=== PATIENT | female | born 1965 | race African-American/Black ===

== ENCOUNTER 2018-09-12 20:22 | Inpatient (IN) | payer OTHER, MEDICAID ==
[~2018-09-12] VITALS: Ht 172.7 cm; Wt 80.5 kg
[2018-09-12] MEDS ORDERED: ALBUTEROL (0.083%) 2.5MG/3ML NEB HHN STA (20:59)
[2018-09-12] MEDS ORDERED: METHYLPREDNISOLONE SOD SUCC 125 MG/2 ML VIAL IV STA (20:59)
[2018-09-12] MEDS ORDERED: IPRATROPIUM BROMIDE (0.02%) 0.5MG/2.5ML NEB HHN STA (20:59)
[2018-09-12 22:03] LABS: BASOPHILS % 0.6 % (0.0-2.0); EOSINOPHILS % 0.9 % (0.0-5.0); HEMATOCRIT. 36.1 % (36.0-48.0); HEMOGLOBIN. 12.1 g/dL (12.0-16.0); LYMPHOCYTES % 21.2 % (20.0-50.0); MEAN CORPUSCULAR HEMOGLOBIN 34.5 pg (28.0-32.0); MEAN CORPUSCULAR VOLUME 103.1 fL (81.0-99.0); MEAN PLATELET VOLUME 8.8 fl (7.4-10.4); NEUTROPHILS % 69.3 % (40.0-76.0); PLATELET 155 x1000/uL (130-400); RED CELL DISTRIBUTION WIDTH 13.1 % (11.6-14.6)
[2018-09-12 22:09] LABS: CHLORIDE 104 mEq/L (98-107)
[2018-09-12] MEDS ORDERED: DOXYCYCLINE 100MG in DEXTROSE 5% WATER 100ML IV NR (22:15)
[2018-09-12] MEDS ORDERED: DOXYCYCLINE HYCLATE 100 MG/VIAL IV ONE (22:15)
[2018-09-13] MEDS ORDERED: DOCUSATE SODIUM 100MG CAPSULE PO PRN (03:45)
[2018-09-13] MEDS ORDERED: GUAIFENESIN 200MG/10ML SUGAR FREE UDC PO PRN (03:45)
[2018-09-13] MEDS ORDERED: IPRATROPIUM/ALBUTEROL 0.5-3(2.5)MG/3ML NEB INH PRN (03:45)
[2018-09-13] MEDS ORDERED: ONDANSETRON HCL 4MG/2ML INJ IV PRN (03:45)
[2018-09-13] MEDS ORDERED: ACETAMINOPHEN 325MG TABLET PO PRN (03:45)
[2018-09-13] MEDS ORDERED: LEVOFLOXACIN 500MG PREMIX 100 ML IV NR (05:45)
[2018-09-13 06:40] LABS: CREATINE KINASE 73 IU/L (26-192)
[2018-09-13 06:41] LABS: CREATINE KINASE MB FRACTION 2.1 ng/mL (0.5-3.6)
[2018-09-13] MEDS: HYDROCODONE/ACETAMINOPHEN 5/325MG TABLET PO PRN (07:31)
[2018-09-13 08:06] LABS: BG BASE EXCESS 0.7 mmol/L (-2.0-2.0); BG DEOXYHEMOGLOBIN 1.7 % (0.0-5.0); BG HCO3 ACT 25.9 mmol/L (22.0-26.0); BG METHEMOGLOBIN 0.4 % (0.0-1.5); BG OXYGEN SATURATION 98.3 % (92.0-98.5); BG OXYHEMOGLOBIN 96.9 % (94.0-97.0); BG PCO2 43.8 mmHg (35.0-45.0); BG PO2 114.1 mmHg (75.0-100.0); BG SAMPLE SITE RIGHT RADIAL; BG TOTAL HEMOGLOBIN 12.6 g/dL (12.0-18.0); BG VENT MODE NASAL CANNULA
[2018-09-13 09:10] VITALS: BP 130/80
[2018-09-13 09:15] VITALS: BP 130/80
[2018-09-13] MEDS: METOPROLOL TARTRATE 25MG TABLET PO SCH ×2 (10:01→21:00)
[2018-09-13] MEDS: ASPIRIN 81MG EC TABLET PO SCH (10:01)
[2018-09-13] MEDS: FUROSEMIDE 40MG/4ML VIAL IV SCH (10:01)
[2018-09-13] MEDS: ENOXAPARIN 40MG/0.4ML SYR SUBCUT SCH (10:01)
[2018-09-13] MEDS ORDERED: SACU1TAB MT (10:38)
[2018-09-13] MEDS ORDERED: B50 MT (10:38)
[2018-09-13] MEDS ORDERED: PREG150C MT (10:38)
[2018-09-13] MEDS ORDERED: LORA10CA MT (10:38)
[2018-09-13] MEDS ORDERED: OXYC-105 MT (10:38)
[2018-09-13] MEDS ORDERED: FURO-151 MT (10:38)
[2018-09-13] MEDS ORDERED: MULT-1116 MT (10:39)
[2018-09-13] MEDS: HYDROMORPHONE HCL/PF 2MG/ML CPJ IV PRN (11:40)
[2018-09-13] MEDS ORDERED: LIDOCAINE HCL/PF 1% 2ML VIAL ONE (13:36)
[2018-09-13 17:51] LABS: CREATINE KINASE MB FRACTION 2.2 ng/mL (0.5-3.6)
[2018-09-13] MEDS ORDERED: LORAZEPAM 2MG/ML CPJ IV PRN (19:45)
[2018-09-13 20:00] VITALS: BP 128/86
[2018-09-13 22:00] VITALS: BP 128/86
[2018-09-14] VITALS: BP 117/74
[2018-09-14 04:00] VITALS: BP 117/78
[2018-09-14] MEDS ORDERED: LEVOFLOXACIN 500MG PREMIX 100 ML IV SCH (05:00)
[2018-09-14 06:59] LABS: BASOPHILS % 0.3 % (0.0-2.0); EOSINOPHILS % 0.2 % (0.0-5.0); HEMATOCRIT. 34.3 % (36.0-48.0); HEMOGLOBIN. 11.9 g/dL (12.0-16.0); LYMPHOCYTES % 18.2 % (20.0-50.0); MEAN CORPUSCULAR HEMOGLOBIN 35.6 pg (28.0-32.0); MEAN PLATELET VOLUME 8.9 fl (7.4-10.4); MONOCYTES % 6.2 % (2.0-8.0); NEUTROPHILS % 75.1 % (40.0-76.0); PLATELET 177 x1000/uL (130-400); RED BLOOD CELL COUNT 3.33 mill/uL (4.2-5.4); RED CELL DISTRIBUTION WIDTH 13.1 % (11.6-14.6)
[2018-09-14 08:00] VITALS: BP 116/80
[2018-09-14] MEDS: ASPIRIN 81MG EC TABLET PO SCH (08:44)
[2018-09-14] MEDS: FUROSEMIDE 40MG/4ML VIAL IV SCH (08:44)
[2018-09-14] MEDS: METOPROLOL TARTRATE 25MG TABLET PO SCH (08:44)
[2018-09-14] MEDS: ENOXAPARIN 40MG/0.4ML SYR SUBCUT SCH (08:45)
[2018-09-14] MEDS: HYDROCODONE/ACETAMINOPHEN 5/325MG TABLET PO PRN (08:51)
[2018-09-14] MEDS: HYDROMORPHONE HCL/PF 2MG/ML CPJ IV PRN (08:56)
[2018-09-14 10:11] LABS: CHLORIDE 104 mEq/L (98-107)
[2018-09-14 10:32] LABS: LDL CHOLESTEROL 73 mg/dL (5-100)
[2018-09-14 10:33] LABS: T4 FREE 1.41 ng/dL (0.76-1.46)
[2018-09-14 10:34] LABS: HDL CHOLESTEROL 63 mg/dL (40-59)
[2018-09-14 12:00] VITALS: BP 104/72
[2018-09-14 12:07] LABS: BG BASE EXCESS 5.9 mmol/L (-2.0-2.0); BG CARBOXYHEMOGLOBIN 0.6 % (0.5-1.5); BG DEOXYHEMOGLOBIN 2.6 % (0.0-5.0); BG FRACTION INSPIRED OXYGEN 28; BG HCO3 ACT 31.4 mmol/L (22.0-26.0); BG METHEMOGLOBIN 0.1 % (0.0-1.5); BG OXYGEN SATURATION 97.4 % (92.0-98.5); BG OXYHEMOGLOBIN 96.7 % (94.0-97.0); BG PCO2 49.4 mmHg (35.0-45.0); BG PH 7.421 (7.350-7.450); BG PO2 101.8 mmHg (75.0-100.0); BG SAMPLE SITE RIGHT RADIAL; BG TOTAL HEMOGLOBIN 12.6 g/dL (12.0-18.0); BG VENT MODE NASAL CANNULA
[2018-09-14 14:32] VITALS: BP 104/72
[2018-09-14 16:00] VITALS: BP 101/59
== END 2018-09-14 17:50 | disposition home or self-care (01) | DRG 304 ==
LOC: ER 20:22 → 8WST 22:01 → EDBEDREQ 22:03 → EDBEDREQTM 22:03 → ENRESERV 09-13 07:37
PROVIDERS: ADMIT Hospitalist; ATTEND Hospitalist
DX: I16.0 Hypertensive urgency (principal); I50.33 Acute on chronic diastolic (congestive) heart failure; J45.901 Unspecified asthma with (acute) exacerbation; J44.9 Chronic obstructive pulmonary disease, unspecified; I11.0 Hypertensive heart disease with heart failure
CPT/HCPCS: 36415; 36600; 71045; 80061; 82375; 82550; 82553; 82805; 83880; 84145; 84439; 84443; 84484; 93005; 93306; 94644; 96374; 99285; J1170; J1650; J1940; J1956; J2060; J2405; J2930; J3490; J7050; J7060; J7611

== ENCOUNTER 2019-04-29 18:08 | Inpatient (IN) | payer OTHER, MEDICAID ==
[~2019-04-29] VITALS: Ht 170.2 cm; Wt 89.8 kg
[~2019-04-29 18:08] MED LIST: B50 MT; FURO-151 MT; LORA10CA MT; MULT-1116 MT; OXYC-105 MT; PREG150C MT; SACU1TAB MT
[2019-04-29] MEDS ORDERED: IPRATROPIUM BROMIDE (0.02%) 0.5MG/2.5ML NEB HHN STA (18:26)
[2019-04-29] MEDS ORDERED: ONDANSETRON HCL 4MG/2ML INJ IV STA (18:26)
[2019-04-29] MEDS ORDERED: LORAZEPAM 2MG/ML CPJ IV ONE (18:30)
[2019-04-29] MEDS ORDERED: ASPIRIN 81MG TABLET PO ONE (18:30)
[2019-04-29 19:00] LABS: HEMATOCRIT. 40.8 % (36.0-48.0); HEMOGLOBIN. 14.2 g/dL (12.0-16.0); MEAN CORPUSCULAR HEMOGLOBIN 35.1 pg (28.0-32.0); MEAN PLATELET VOLUME 9.1 fl (7.4-10.4); PLATELET 131 x1000/uL (130-400); RED BLOOD CELL COUNT 4.03 mill/uL (4.2-5.4); RED CELL DISTRIBUTION WIDTH 14.8 % (11.6-14.6)
[2019-04-29 19:04] LABS: CHLORIDE 103 mEq/L (98-107); INR 1.1; PROTHROMBIN TIME 11.4 sec (9.6-11.0)
[2019-04-29] MEDS ORDERED: MAGNESIUM 2 G PREMIX 50 ML IV NR (19:45)
[2019-04-29] MEDS ORDERED: FUROSEMIDE 20MG/2ML VIAL IVP NR (19:45)
[2019-04-29 19:59] LABS: PLATELET ESTIMATE NORMAL
[2019-04-29 20:26] LABS: BG BASE EXCESS -1.6 mmol/L (-2.0-2.0); BG BILEVEL POS AIRWAY PRESSURE 15/5; BG CARBOXYHEMOGLOBIN 0.6 % (0.5-1.5); BG DEOXYHEMOGLOBIN 1.7 % (0.0-5.0); BG FRACTION INSPIRED OXYGEN 40; BG HCO3 ACT 23.2 mmol/L (22.0-26.0); BG METHEMOGLOBIN 0.4 % (0.0-1.5); BG OXYGEN SATURATION 98.3 % (92.0-98.5); BG OXYHEMOGLOBIN 97.3 % (94.0-97.0); BG PCO2 39.5 mmHg (35.0-45.0); BG PH 7.387 (7.350-7.450); BG PO2 128.2 mmHg (75.0-100.0); BG SAMPLE SITE RIGHT RADIAL; BG TOTAL HEMOGLOBIN 14.5 g/dL (12.0-18.0); BG VENT MODE MASK - BIPAP; BG VENT RATE 14 set
[2019-04-29] MEDS ORDERED: CLONIDINE 0.1MG TABLET PO PRN (21:15)
[2019-04-29] MEDS ORDERED: LORAZEPAM 0.5MG TABLET PO PRN (21:15)
[2019-04-29] MEDS ORDERED: MAGNESIUM/ALUMINUM HYDROXIDE/SIMETHICONE 30ML UDC PO PRN (21:15)
[2019-04-29] MEDS ORDERED: IPRATROPIUM/ALBUTEROL 0.5-3(2.5)MG/3ML NEB INH PRN (21:15)
[2019-04-29] MEDS ORDERED: ONDANSETRON HCL 4MG/2ML INJ IV PRN (21:15)
[2019-04-29] MEDS ORDERED: ZOLPIDEM TARTRATE 5MG TABLET PO PRN (21:15)
[2019-04-29] MEDS ORDERED: NITROGLYCERIN 0.4MG TABLET SL SL PRN (21:15)
[2019-04-29] MEDS ORDERED: KETOROLAC 15MG/ML VIAL IV PRN (21:15)
[2019-04-29] MEDS ORDERED: GUAIFENESIN 200MG/10ML SUGAR FREE UDC PO PRN (21:15)
[2019-04-29] MEDS ORDERED: ACETAMINOPHEN 325MG TABLET PO PRN (21:15)
[2019-04-29] MEDS ORDERED: DOCUSATE SODIUM 100MG CAPSULE PO PRN (21:15)
[2019-04-29] MEDS ORDERED: POTASSIUM CHLORIDE 20MEQ TABLET SR PO NR (21:15)
[2019-04-29 22:49] LABS: ETHANOL BLOOD < 10 mg/dL
[2019-04-29 22:52] LABS: LDL CHOLESTEROL 65 mg/dL (5-100); TOTAL IRON BINDING CAPACITY 584 ug/dL (250-450)
[2019-04-29 22:54] LABS: HDL CHOLESTEROL 68 mg/dL (40-59)
[2019-04-29 23:20] LABS: CREATINE KINASE 125 IU/L (26-192)
[2019-04-29 23:21] LABS: CREATINE KINASE MB FRACTION 1.4 ng/mL (0.5-3.6)
[2019-04-29 23:32] LABS: FOLIC ACID (FOLATE) SERUM 12.4 ng/mL (>5.38)
[2019-04-30] VITALS (15 sets, daily range): BP systolic 113–146; BP diastolic 36–95
[2019-04-30] MEDS ORDERED: AZITHROMYCIN 500 MG in DEXT 5% WATER 250 ML IV SCH (05:00)
[2019-04-30] MEDS ORDERED: CEFTRIAXONE 1 G PREMIX 50 ML IV SCH (06:00)
[2019-04-30] MEDS: FUROSEMIDE 40MG/4ML VIAL IVP SCH ×2 (06:09→20:59)
[2019-04-30] MEDS: CARVEDILOL 3.125 MG TABLET PO SCH ×2 (06:10→17:26)
[2019-04-30 06:45] LABS: CHLORIDE 104 mEq/L (98-107)
[2019-04-30 07:00] LABS: CREATINE KINASE 144 IU/L (26-192)
[2019-04-30 07:37] LABS: *AMPHETAMINES SCREEN URINE PRESUMTIVE POSITIVE (NEGATIVE); *BARBITURATES SCREEN URINE NEGATIVE (NEGATIVE); *BENZODIAZEPINES SCREEN URINE NEGATIVE (NEGATIVE)
[2019-04-30 07:38] LABS: *COCAINE SCREEN URINE NEGATIVE (NEGATIVE); METHADONE URINE SCREEN NEGATIVE (NEGATIVE); OPIATES URINE SCREEN NEGATIVE (NEGATIVE)
[2019-04-30 07:39] LABS: CANNABINOID URINE SCREEN PRESUMTIVE POSITIVE (NEGATIVE); PHENCYCLIDINE URINE SCREEN PRESUMTIVE POSITIVE (NEGATIVE)
[2019-04-30] MEDS ORDERED: FUROSEMIDE 40MG/4ML VIAL IVP SCH (09:00)
[2019-04-30] MEDS: ASPIRIN 325MG EC TABLET PO SCH (09:22)
[2019-04-30] MEDS: PREGABALIN 75MG CAPSULE PO SCH ×2 (09:22→20:57)
[2019-04-30] MEDS: FAMOTIDINE 20MG TABLET PO SCH ×2 (09:22→21:18)
[2019-04-30] MEDS: GUAIFENESIN/DM 600MG/30MG ER TAB 12HR PO SCH ×2 (09:22→20:57)
[2019-04-30] MEDS: SPIRONOLACTONE 25MG TABLET PO SCH ×2 (09:24→20:59)
[2019-04-30] MEDS: ENOXAPARIN 40MG/0.4ML SYR SUBCUT SCH (09:26)
[2019-04-30] MEDS: LISINOPRIL 5MG TABLET PO SCH ×2 (09:45→20:58)
[2019-04-30 10:39] LABS: BG BASE EXCESS -0.6 mmol/L (-2.0-2.0); BG CARBOXYHEMOGLOBIN 0.7 % (0.5-1.5); BG DEOXYHEMOGLOBIN 5.1 % (0.0-5.0); BG FRACTION INSPIRED OXYGEN 28; BG HCO3 ACT 25.5 mmol/L (22.0-26.0); BG METHEMOGLOBIN 0.3 % (0.0-1.5); BG OXYGEN SATURATION 94.8 % (92.0-98.5); BG OXYHEMOGLOBIN 93.9 % (94.0-97.0); BG PH 7.344 (7.350-7.450); BG SAMPLE SITE RIGHT RADIAL; BG TOTAL HEMOGLOBIN 13.8 g/dL (12.0-18.0); BG VENT MODE NASAL CANNULA
[2019-04-30 13:07] LABS: T4 FREE 1.35 ng/dL (0.76-1.46)
[2019-04-30] MEDS: METHYLPREDNISOLONE SOD SUCC 40 MG/ML VIAL IV SCH ×2 (13:12→20:59)
[2019-04-30] MEDS: BUDESONIDE 0.5MG/2ML NEB HHN SCH ×2 (13:27→21:44)
[2019-04-30] MEDS: IPRATROPIUM/ALBUTEROL 0.5-3(2.5)MG/3ML NEB HHN SCH ×2 (13:27→21:44)
[2019-04-30 15:25] LABS: CREATINE KINASE 139 IU/L (26-192)
[2019-04-30 15:26] LABS: CREATINE KINASE MB FRACTION 2.1 ng/mL (0.5-3.6)
[2019-04-30 23:21] LABS: CREATINE KINASE 128 IU/L (26-192); CREATINE KINASE MB FRACTION 1.6 ng/mL (0.5-3.6)
[2019-05-01] VITALS (12 sets, daily range): BP systolic 101–130; BP diastolic 55–96
[2019-05-01] MEDS: CEFTRIAXONE 1 G PREMIX 50 ML IV SCH (02:08)
[2019-05-01] MEDS: AZITHROMYCIN 500 MG in DEXT 5% WATER 250 ML IV SCH (03:42)
[2019-05-01 06:12] LABS: CREATINE KINASE 94 IU/L (26-192)
[2019-05-01 06:14] LABS: CREATINE KINASE MB FRACTION 1.4 ng/mL (0.5-3.6)
[2019-05-01] MEDS: METHYLPREDNISOLONE SOD SUCC 40 MG/ML VIAL IV SCH ×3 (06:42→21:33)
[2019-05-01] MEDS: CARVEDILOL 3.125 MG TABLET PO SCH ×2 (06:46→18:41)
[2019-05-01] MEDS: FUROSEMIDE 40MG/4ML VIAL IVP SCH ×2 (08:22→21:33)
[2019-05-01] MEDS: ASPIRIN 325MG EC TABLET PO SCH (08:23)
[2019-05-01] MEDS: SPIRONOLACTONE 25MG TABLET PO SCH ×2 (08:23→21:33)
[2019-05-01] MEDS: LISINOPRIL 5MG TABLET PO SCH ×2 (08:23→21:32)
[2019-05-01] MEDS: GUAIFENESIN/DM 600MG/30MG ER TAB 12HR PO SCH ×2 (08:23→21:34)
[2019-05-01] MEDS: FAMOTIDINE 20MG TABLET PO SCH ×2 (08:23→21:29)
[2019-05-01] MEDS: PREGABALIN 75MG CAPSULE PO SCH ×2 (08:23→22:10)
[2019-05-01] MEDS: TRAMADOL 50MG TABLET PO PRN ×2 (08:36→13:48)
[2019-05-01] MEDS: IPRATROPIUM/ALBUTEROL 0.5-3(2.5)MG/3ML NEB HHN SCH ×2 (08:46→14:45)
[2019-05-01] MEDS: BUDESONIDE 0.5MG/2ML NEB HHN SCH (08:47)
[2019-05-01] MEDS: ENOXAPARIN 40MG/0.4ML SYR SUBCUT SCH (09:00)
[2019-05-01 11:41] LABS: HEMATOCRIT 42.2 % (36.0-48.0); HEMOGLOBIN 14.7 g/dL (12.0-16.0); MEAN CORPUSCULAR HEMOGLOBIN 34.9 pg (28.0-32.0); MEAN CORPUSCULAR VOLUME 100.2 fL (81.0-99.0); PLATELET 157 x1000/uL (130-400); RED BLOOD CELL COUNT 4.21 mill/uL (4.2-5.4)
[2019-05-01 11:48] LABS: CHLORIDE 103 mEq/L (98-107)
[2019-05-01] MEDS: GUAIFENESIN 600MG ER TABLET PO SCH (21:33)
[2019-05-02] VITALS (8 sets, daily range): BP systolic 105–112; BP diastolic 46–76
[2019-05-02] MEDS: IPRATROPIUM/ALBUTEROL 0.5-3(2.5)MG/3ML NEB HHN SCH ×2 (02:15→08:21)
[2019-05-02] MEDS: CEFTRIAXONE 1 G PREMIX 50 ML IV SCH (02:20)
[2019-05-02] MEDS: AZITHROMYCIN 500 MG in DEXT 5% WATER 250 ML IV SCH (03:10)
[2019-05-02] MEDS: CARVEDILOL 3.125 MG TABLET PO SCH (05:53)
[2019-05-02] MEDS: METHYLPREDNISOLONE SOD SUCC 40 MG/ML VIAL IV SCH (05:54)
[2019-05-02] MEDS: BUDESONIDE 0.5MG/2ML NEB HHN SCH (08:21)
[2019-05-02] MEDS: FAMOTIDINE 20MG TABLET PO SCH (08:34)
[2019-05-02] MEDS: GUAIFENESIN 600MG ER TABLET PO SCH (08:34)
[2019-05-02] MEDS: FUROSEMIDE 40MG/4ML VIAL IVP SCH (08:35)
[2019-05-02] MEDS: ASPIRIN 325MG EC TABLET PO SCH (08:35)
[2019-05-02] MEDS: PREGABALIN 75MG CAPSULE PO SCH (08:35)
[2019-05-02] MEDS: GUAIFENESIN/DM 600MG/30MG ER TAB 12HR PO SCH (08:35)
[2019-05-02] MEDS: LISINOPRIL 5MG TABLET PO SCH (08:38)
[2019-05-02] MEDS: SPIRONOLACTONE 25MG TABLET PO SCH (08:38)
[2019-05-02] MEDS: ENOXAPARIN 40MG/0.4ML SYR SUBCUT SCH (08:41)
== END 2019-05-02 11:20 | disposition home or self-care (01) | DRG 291 ==
LOC: ER 18:08 → 3WST 21:09 → EDBEDREQSVC 21:12 → EDBEDREQTM 21:12 → EDBEDREQ 21:12 → ENRESERV 22:07
PROVIDERS: ADMIT Internal Medicine; ATTEND Internal Medicine
PROC: 5A09357 Assistance with Respiratory Ventilation, Less than 24 Consecutive Hours, Continuous Positive Airway Pressure (ICD-10-PCS; principal; 2019-04-29)
PROC: 5A09357 Assistance with Respiratory Ventilation, Less than 24 Consecutive Hours, Continuous Positive Airway Pressure (ICD-10-PCS; 2019-04-30)
DX: I11.0 Hypertensive heart disease with heart failure (principal); J18.9 Pneumonia, unspecified organism; J96.00 Acute respiratory failure, unspecified whether with hypoxia or hypercapnia; J44.0 Chronic obstructive pulmonary disease with (acute) lower respiratory infection; J44.1 Chronic obstructive pulmonary disease with (acute) exacerbation; I50.23 Acute on chronic systolic (congestive) heart failure; I42.9 Cardiomyopathy, unspecified; E87.6 Hypokalemia; F12.10 Cannabis abuse, uncomplicated; F15.10 Other stimulant abuse, uncomplicated; F17.210 Nicotine dependence, cigarettes, uncomplicated; F20.9 Schizophrenia, unspecified; F43.10 Post-traumatic stress disorder, unspecified; I27.20 Pulmonary hypertension, unspecified; I34.0 Nonrheumatic mitral (valve) insufficiency; Z79.899 Other long term (current) drug therapy; Z71.51 Drug abuse counseling and surveillance of drug abuser
CPT/HCPCS: 36415; 36600; 71045; 80048; 80061; 80305; 80320; 82375; 82550; 82553; 82607; 82746; 82805; 83036; 83540; 83550; 83735; 83880; 84439; 84443; 84484; 85027; 85379; 93005; 93306; 93970; 94640; 94660; 96374; 96375; 99291; J0456; J0696; J1650; J1885; J1940; J2060; J2405; J2920; J3475; J7060; J7620; J7626; G0480